=== PATIENT | female | born 2000 | race Caucasian/White ===

== ENCOUNTER 2021-02-23 20:21 | Emergency (ER) | payer BC, MEDICAID ==
--- NOTE | 2021-02-23 21:35 | EDM.PDOCBH ---
ED HPI GENERAL MEDICAL PROBLEM - General Chief Complaint: Behavioral/Psych Stated Complaint: panic attacks Time Seen by Provider: 02/23/21 20:39 Source of Information: Reports: Patient, Family (Mother) History Limitations: Reports: No Limitations - History of Present Illness INITIAL COMMENTS - FREE TEXT/NARRATIVE: Ms. Torres is a pleasant 21-year-old woman who now presents the ED due to mood swings. The patient states that she has had mood swings, ranging from feeling happy, to angry, to crying, for several months, at least, but that it was worse than usual today. She states that she was diagnosed with bipolar affective disorder by an online Psychiatrist in early 2020 and prescribed Lamictal, which she took for about 3 weeks starting on 10/28/2020, but that she self-discontinued it because she did not think that it was helping, and, she states, she was unable to get in touch with the Psychiatrist to discuss side effects. The patient acknowledges that she has a history of both anxiety and depression; she takes propranolol for anxiety, but nothing for her depression. The patient denies feeling suicidal or homicidal. She states that she has never attempted suicide, and states that she has never been psychiatrically hospitalized. Here in the ED, the patient is found to be hemodynamically stable, afebrile, saturating 98% on room air. She appears to be comfortable on the gurney, in no acute distress. Other than her mood swings, the patient denies having a recent fever, chills, sore throat, ear pain, nasal or sinus congestion, cough, dyspnea, chest pain, palpitations, nausea, vomiting, constipation, diarrhea, abdominal pain, urinary symptoms, recent weight gain or weight loss, recent bloody bowel movements or black bowel movements, recent joint aches, headaches, or rashes. The patient's PCP is IGNACIA Downs. - Related Data Allergies Allergy/AdvReac Type Severity Reaction Status Date / Time apricot Allergy Rash Verified 02/23/21 21:11 bacitracin Allergy Rash Verified 02/23/21 21:14 benzyl alcohol Allergy Rash Verified 02/23/21 21:11 cocoa Allergy Rash Verified 02/23/21 21:11 cranberry Allergy Rash Verified 02/23/21 21:11 honey Allergy Rash Verified 02/23/21 21:12 mushroom Allergy Rash Verified 02/23/21 21:12 nystatin Allergy Rash Verified 02/23/21 21:10 triamcinolone Allergy Rash Verified 02/23/21 21:10 eye drops Allergy Rash Uncoded 02/23/21 21:14 methanol Allergy Rash Uncoded 02/23/21 21:12 motion sickness medications Allergy Rash Uncoded 02/23/21 21:14 nose drops Allergy Rash Uncoded 02/23/21 21:13 snap peas Allergy Rash Uncoded 02/23/21 21:12 Home Meds: Home Meds Amitriptyline [Elavil] 25 mg PO DAILY 02/23/21 [History] Propranolol HCl [Inderal LA] 80 mg PO DAILY 02/23/21 [History] Past Medical History Neurological History: Reports: Migraines Psychiatric History: Reports: Anxiety, Bipolar (untreated), Depression (untreated) - Infectious Disease History Infectious Disease History: Reports: Influenza, Novel Coronavirus Social & Family History - Tobacco Use Tobacco Use Within Last Twelve Months: Vaping (Nicotine) Years of Tobacco use: 1 Packs/Tins Daily: 0.2 Packs/Tins Daily Comment: Quit 2016 Tobacco Use Comment: Started smoking 2015 - Caffeine Use Caffeine Use: Reports: Energy Drinks - Alcohol Use Alcohol Use History: Yes Alcohol Use Frequency: Rarely - Recreational Drug Use Recreational Drug Use: Yes Drug Use in Last 12 Months: Yes Recreational Drug Type: Reports: Marijuana/Hashish (smokes on occasion - last = 2nd week February 2021) - Living Situation & Occupation Living situation: Reports: Single, Alone Occupation: Employed ([employer]) ED ROS GENERAL - Review of Systems Review Of Systems: Comprehensive ROS is negative, except as noted in HPI. ED EXAM, BEHAVIORAL HEALTH - Physical Exam Exam: See Below Exam Limited By: No Limitations General Appearance: Alert, WD/WN, No Apparent Distress Eye Exam: Bilateral Eye: EOMI, Normal Inspection Ears: Normal External Exam, Hearing Grossly Normal Nose: Normal Inspection Throat/Mouth: Normal Inspection, Normal Lips, Normal Voice, No Airway Compromise Head: Atraumatic, Normocephalic Neck: Normal Inspection, Non-Tender, Full Range of Motion Respiratory/Chest: No Respiratory Distress, Lungs Clear, Normal Breath Sounds, No Accessory Muscle Use Cardiovascular: Normal Peripheral Pulses, Regular Rate, Rhythm, No Edema, No Gallop, No JVD, No Murmur, No Rub GI/Abdominal: Normal Bowel Sounds, Soft, Non-Tender, No Organomegaly, No Distention, No Abnormal Bruit, No Mass Back Exam: Normal Inspection, Full Range of Motion, NT Extremities: Normal Inspection, Normal Range of Motion, No Pedal Edema, Normal Capillary Refill Neurological: Alert, Normal Cognition, No Motor/Sensory Deficits, Oriented x 3 Psychiatric: Normal Affect, Tearful (at one point) Skin Exam: Warm, Dry, Intact, Normal color, No rash COURSE, BEHAVIORAL HEALTH COMP - Course Vital Signs: Last Vital Signs Temp 37.3 C 02/23/21 20:51 Pulse 79 02/23/21 20:51 Resp 18 02/23/21 20:51 BP 128/83 02/23/21 20:51 Pulse Ox 98 02/23/21 20:51 Medical Clearance: 02/23/21 21:31 As above, the patient has been experiencing mood swings for several months, which became worse today, with moods alternating between happiness, anger, and crying. No suicidal ideation or attempt. No homicidal ideation. Her physical exam is unremarkable. I explained to the patient and her mother that under her current circumstances, since she is not actively suicidal, homicidal, or psychotic, she would not qualify for emergency psychiatric hospitalization, and she appears to understand that. For [facility]'s purposes, we will try to get in touch with Dr. Kemp, to see if he would be willing to perform a telemedicine interview with the patient, however, if we are unable to get in touch with him, or if he is unable to perform an interview, then we will need to have the patient follow-up at [facility]. Because the patient is not a candidate for emergency psychiatric hospitalization, a psychiatric medical clearance panel is not needed. 02/23/21 23:47 Unfortunately, we have not been able to reach Dr. Kemp despite calling and texting him. I will discharge the patient home with the recommendation that she follow-up at [facility] tomorrow. Departure - Departure Time of Disposition: 23:47 Disposition: Home, Self-Care 01 Condition: Good Clinical Impression: Mood disorder - Discharge Information *PRESCRIPTION DRUG MONITORING PROGRAM REVIEWED*: Not Applicable *COPY OF PRESCRIPTION DRUG MONITORING REPORT IN PATIENT HALIMA: Not Applicable Referrals: Luzma Garcia PA-C [Physician Scheduling Assistant] - Forms: ED Department Discharge Additional Instructions: You were seen in the emergency room long-term mood swings that got worse today. Your symptoms are very consistent with bipolar affective disorder, however, the ER is not in a position to make such a diagnosis. You need to see a Psychiatrist. Unfortunately, we were unable to reach a Psychiatrist for a telemedicine interview laura. We recommend that you go to [facility] for evaluation: [address] [place] [phone] If any other problems, please do not hesitate to return to the ER. Sepsis Event Note (ED) - Evaluation Sepsis Screening Result: No Definite Risk - Focused Exam Vital Signs: Vital Signs Temp Pulse Resp BP Pulse Ox 02/23/21 20:51 37.3 C 79 18 128/83 98
== END 2021-02-23 23:56 | disposition home or self-care (01) ==
LOC: JD.ED 20:21
DX: F39 Unspecified mood [affective] disorder (principal); Z72.0 Tobacco use; Z86.16 Personal history of COVID-19
CPT/HCPCS: 99284